=== PATIENT | male | born 1980 | race Caucasian/White ===

== ENCOUNTER 2019-04-08 13:57 | Emergency (ER) | payer SELFPAY ==
[~2019-04-08] VITALS: Ht 185.4 cm; Wt 77.1 kg
[~2019-04-08 13:57] MED LIST: CEPH500 PO; DIAZ5 PO; HYDACE5 PO; IBUP800 PO; NAPR500 PO; OXYACE5T PO
== END 2019-04-08 14:30 | disposition left against medical advice (07) ==
LOC: ER 13:57
DX: Z53.21 Procedure and treatment not carried out due to patient leaving prior to being seen by health care provider (principal)